=== PATIENT | female | born 1945 | race Caucasian/White ===

== ENCOUNTER 2016-12-30 14:10 | Inpatient (IN) | payer MEDICARE, OTHER ==
[~2016-12-30] VITALS: Ht 157.5 cm; Wt 78.9 kg
--- NOTE | 2016-12-30 14:30 | NUR ---
PT CAME IN FOR B LEG SWELLING AND PAIN X 2 WEEKS. REPORTS INCREASING PAIN AND UNABLE TO STRETCH IT OUT WELL LIKE BEFORE. NOTED ANXIOUS. AAOX3. REPORTS PAIN BUT REPORTS ALLERGIC TO MOST PAIN MEDS. SEEN BY MD FOR EVAL. DENIES FEVER. VSS. SAFETY AND COMFORT MEASURES PROVIDED. WILL MONITOR.
[2016-12-30] MEDS ORDERED: MORPHINE SULFATE INJ 4 MG/ML DISP.SYRIN ONE (14:47)
[2016-12-30] MEDS ORDERED: ONDANSETRON HCL/PF 4 MG/2 ML VIAL ONE (14:48)
--- NOTE | 2016-12-30 14:49 | NUR ---
EKG IN PROGRESS
--- NOTE | 2016-12-30 14:49 | NUR ---
JOB ORDER CLERK AT BEDSIDE
[2016-12-30 14:55] LABS: BASOPHILS # (AUTO) 0.1 /CMM (0.0-0.2); BASOPHILS % (AUTO) 0.6 % (0.0-2.0); EOSINOPHILS # (AUTO) 0.1 /CMM (0.0-0.7); HEMATOCRIT 43 % (33-45); HEMOGLOBIN 14.4 g/dL (11.5-14.8); LYMPHOCYTES # (AUTO) 2.3 /CMM (0.8-4.8); LYMPHOCYTES % (AUTO) 18.3 % (20.0-44.0); MEAN CORPUSCULAR HEMOGLOBIN 31 PG (26.0-33.0); MEAN CORPUSCULAR HGB CONC 33 g/dl (31.0-36.0); MEAN CORPUSCULAR VOLUME 91 fL (82-100); MONOCYTES # (AUTO) 0.9 /CMM (0.1-1.30); MONOCYTES % (AUTO) 7.2 % (2.0-12.0); NEUTROPHILS # (AUTO) 9.3 /CMM (1.8-8.9); NEUTROPHILS % (AUTO) 72.9 % (43.0-81.0); PLATELET COUNT (AUTO) 251 /CMM (150-450); RED BLOOD CELL COUNT(AUTO) 4.71 MIL/uL (4.0-5.2); WHITE BLOOD COUNT (AUTO) 12.7 K/uL (4.3-11.0)
--- NOTE | 2016-12-30 14:57 | NUR ---
PT REFUSED MORPHINE FOR ALLERGY REASONS.
[2016-12-30] MEDS ORDERED: MORPHINE SULFATE INJ 2 MG/ML DISP.SYRIN IV ONE (15:00)
[2016-12-30] MEDS ORDERED: ONDANSETRON HCL/PF - ER 4 MG/2 ML VIAL IV ONE (15:00)
[2016-12-30 15:05] LABS: CALCIUM, SERUM 10.2 mg/dL (8.5-10.1); CARBON DIOXIDE 28 mmol/L (21-32); CHLORIDE 105 mmol/L (98-107); CREATININE 0.9 mg/dL (0.6-1.3); GLUCOSE 111 mg/dL (74-106); POTASSIUM 4.1 mmol/L (3.5-5.1); SODIUM SERUM 140 mmol/L (136-145); UREA NITROGEN, BLOOD 11 mg/dL (7-18)
[2016-12-30 15:08] LABS: INR 0.99 (0.87-1.13); PROTHROMBIN TIME 10.3 SECS (9.5-12.7)
[2016-12-30 15:14] LABS: TROPONIN I < 0.017 ng/mL (0.00-0.056)
[2016-12-30 15:19] LABS: ALBUMIN 3.5 g/dL (3.4-5.0); BILIRUBIN,TOTAL 0.3 mg/dL (0.2-1.0); TOTAL PROTEIN, SERUM 6.9 g/dL (6.4-8.2)
[2016-12-30] MEDS ORDERED: IOHEXOL-350 100 ML VIAL IV ONE (15:25)
[2016-12-30] MEDS ORDERED: IV NS 0.9% 0 ML IV ONE (15:25)
--- NOTE | 2016-12-30 16:18 | NUR ---
EPIC PAGED, CERTIFIED MIDWIFE
--- NOTE | 2016-12-30 16:19 | NUR ---
CALLED NURSING SUP. FOR MS BED
[2016-12-30] MEDS ORDERED: IPRATROPIUM NEB FS 0.5 MG/2.5 ML AMPUL.NEB NEB ONE (16:30)
[2016-12-30] MEDS ORDERED: ALBUTEROL FS 2.5 MG/0.5 ML VIAL.NEB NEB ONE (16:30)
--- NOTE | 2016-12-30 16:35 | NUR ---
REPORT GIVEN TO AUGUSTINE GO FOR MS ROOM 203
[2016-12-30] MEDS ORDERED: MECL12.582 PO (16:44)
[2016-12-30] MEDS ORDERED: QUIN10TA28 PO (16:44)
[2016-12-30] MEDS ORDERED: LEVO100T9 PO (16:44)
[2016-12-30] MEDS ORDERED: LEVO75TA7 PO (16:44)
[2016-12-30] MEDS ORDERED: IV NS 0.9% 1,000 ML IV PRN (17:13)
[2016-12-30 17:30] VITALS: BP 176/77
[2016-12-30] MEDS ORDERED: ZOLPIDEM TARTRATE 5 MG TABLET PO PRN (17:30)
[2016-12-30] MEDS ORDERED: FEE PK DOSING 1 MIN EA MC ONE (17:30)
[2016-12-30] MEDS ORDERED: ONDANSETRON HCL/PF 4 MG/2 ML VIAL IVP PRN (17:30)
[2016-12-30] MEDS ORDERED: HYDROCODONE/APAP 5/325MG 1 EACH TABLET PO PRN (17:30)
[2016-12-30] MEDS ORDERED: MAGNESIUM HYDROXIDE 30 ML UDC PO PRN (17:30)
[2016-12-30] MEDS: ENOXAPARIN SODIUM 40 MG/0.4 ML DISP.SYRIN SQ SCH (17:30)
[2016-12-30] MEDS ORDERED: LORAZEPAM INJ 2 MG/ML VIAL IV PRN (17:30)
[2016-12-30] MEDS ORDERED: MORPHINE SULFATE INJ 2 MG/ML DISP.SYRIN IV PRN (17:30)
[2016-12-30] MEDS ORDERED: ACETAMINOPHEN 325 MG TABLET PO PRN (17:30)
[2016-12-30] MEDS ORDERED: MAG HYDROX/AL HYDROX/SIMETH 30 ML UDC PO PRN (17:30)
[2016-12-30] MEDS ORDERED: Z GUARD REMEDY 2 OZ OINT TP PRN (17:30)
--- NOTE | 2016-12-30 17:30 | NUR ---
ADMITTED PT FROM ER WITH DX OF CELLULITIS.PT IS ALERT AND ORIENTED X4.VERBALLY RESPONSIVE.AMBULATES AD DEN.WITH BLE REDNESS AND SWELLING.RESPIRATIONS NON LABORED IN ROOM AIR.DENIES ANY PAIN OR DISTRESS.WITH BRP.CALL LIGHT PLACED WITHIN REACH.
[2016-12-30] MEDS ORDERED: IV SET PRIMARY PUMP SET 1 EA INFUS.SET MC ONE ×2 (17:51→18:17)
[2016-12-30] MEDS: VANCOMYCIN 1 GM in IV D5W 250ml IV SCH (18:21)
[2016-12-30] MEDS ORDERED: SECONDARY IV SET 1 EA INFUS.SET MC ONE (18:23)
[2016-12-30] MEDS: hydrALAZINE HCL 25 MG TABLET PO PRN (18:24)
--- NOTE | 2016-12-30 19:00 | NUR ---
PT IS STILL EATING DINNER AND UNABLE TO DO BODY CHECK.PT WENT TO THE TOILET.ENDORSED TO NIGHT NURSE.CALL LIGHT PLACED WITHIN REACH.
--- NOTE | 2016-12-30 19:05 | NUR ---
RN NOTES RECEIVED PT AWAKE, HOB ELEVATED, NO SOB, NOT IN DISTRESS, ON ROOM AIR WITH GOOD SATURATION. PT ALERT AND ORIENTED X3, DENIES ANY PAIN AND DISCOMFORT AT THIS TIME. WHEEZING NOTED UPON AUSCULTATION. WITH IV ACCESS ON LEFT AC PATENT AND INTACT WITH ONGOING VANCOMYCIN INFUSING WELL. NOTES WITH REDNESS AND SWELLING ON BOTHE LOWER LEG AND FOOT, KEPT ELEVATED AND HEELS OFFLOADED. KEPT BED IN LOWEST POSITION, LOCKED, SIDE RAILS X 2 UP, WITH CALL LIGHT WITHIN REACH. KEPT COMFORTABLE AND ATTENDED. WILL CONTINUE TO MONITOR PT.
[2016-12-30 20:00] VITALS: BP 160/69
[2016-12-30] MEDS: ALBUTEROL FS 2.5 MG/3 ML VIAL.NEB NEB SCH ×2 (20:19→23:30)
[2016-12-30] MEDS ORDERED: VANCOMYCIN 1.25 GM in IV D5W 500 ML IV SCH (21:00)
--- NOTE | 2016-12-30 21:45 | NUR ---
RN NOTES PT REFUSED IV FLUID, PER PT SHE DOESN'T NEED IT, SHE EATS WELL. RISK AND BENEFITS EXPLAINED, PT INSIST NOT TO HAVE IVF. WIOLL CONTINUE TO MONITOR PT.
[2016-12-30 22:00] VITALS: BP 160/69
--- NOTE | 2016-12-30 23:45 | NUR ---
RN NOTES PER SUSHIL RT PT REFUSED SCHEDULED BREATHING TREATMENT. PT WANTS TO HAVE IT IN THE MORNING. O2SAT 96% AT ROOM AIR. DENIES SOB AND ANY DISCOMFORT. WILL MONITOR PT.
[2016-12-31] MEDS: ALBUTEROL FS 2.5 MG/3 ML VIAL.NEB NEB SCH ×6 (03:30→23:29)
[2016-12-31] MEDS: VANCOMYCIN 1 GM in IV D5W 250ml IV SCH ×2 (06:00→17:30)
--- NOTE | 2016-12-31 06:17 | NUR ---
RN NOTES PT REFUSED VANCOMYCIN IV, PER PT SHE HAS A LOT OF ALLERGY IN MEDICATION. YESTERDAY SHE SAID SHE FELT WARM AFTER THE FIRST DOSE WAS GIVEN, BUT WAS NOT MENTIONED TO THE NURSE. RISK AND BENEFITS EXPLAINED, PT STRONGLY REFUSED. WILL CONTINUE TO MONITOR PT.
--- NOTE | 2016-12-31 07:21 | NUR ---
RN NOTES PT AWAKE, SITTING IN HER BED, NO SOB, NOT IN DISTRESS, ON ROOM AIR WITH GOOD SATURATION. VITAL SIGNS STABLE, AFEBRILE. NO COMPLAIN OF CHEST PAIN AND SOB. NO EPISODE OF NAUSEA AND VOMITING. PT IS NOTED NON COMPLIANT WITH TREATMENT AND MEDICATIONS. PT VERBALIZED PAIN ON HER LOWER LEGS AND DOESN'T WANT TO TAKE ANY PAIN MEDICATIONS. REFUSED BLOOD DRAW FOR BLOOD TESTS. PT AMBULATORY WITH STEADY GAIT. KEPT COMFORTABLE AND ATTENDED. WILL ENDORSE TO MORNING RN FOR CONTINUITY OF CARE.
[2016-12-31] MEDS: PANTOPRAZOLE 40 MG TABLET.DR PO SCH (07:30)
--- NOTE | 2016-12-31 07:30 | NUR ---
MS RN NOTES RECEIVED PATIENT AWAKE, AOX3, ABLE TO MAKE NEEDS KNOWN. BREATHING EVEN AND NON LABORED, DENIES ANY PAIN AT THIS TIME. NO S/S OF ANY RESPIRATORY DISTRESS OR DISCOMFORT NOTED. CALL LIGHT WITHIN REACH, BED IN LOW POSITION FOR SAFETY MEASURES. WILL CONTINUE TO MONITOR.
[2016-12-31 08:00] VITALS: BP 157/84
--- NOTE | 2016-12-31 08:00 | NUR ---
MS RN NOTES PER PT SHE'S ALLERGIC TO EGGS, DIETARY/KITCHEN MADE AWARE AND ALLERGY UPDATED. .
[2016-12-31] MEDS: NICOTINE PATCH (21MG) 21 MG PATCH.TD24 TD SCH (08:29)
[2016-12-31] MEDS: AMLODIPINE BESYLATE 5 MG TABLET PO SCH (08:29)
--- NOTE | 2016-12-31 08:30 | NUR ---
MS RN NOTES SEEN AND EXAMINED BY DR. RENDON WITH NEW ORDERS MADE AND CARRIED OUT.
--- NOTE | 2016-12-31 09:00 | NUR ---
MS RN NOTES PT REFUSED HER PROTONIX SHE STATED THAT SHE DON'T NEED IT. RISK AND BENEFITS DISCUSSED TO THE PATIENT THAT IT IS FOR HER STOMACH UPSET, BUT SHE REFUSED. WILL CONTINUE TO MONITOR.
[2016-12-31 09:34] LABS: BASOPHILS % (AUTO) 0.2 % (0.0-2.0); EOSINOPHILS # (AUTO) 0.2 /CMM (0.0-0.7); EOSINOPHILS % (AUTO) 1.4 % (0.0-6.0); HEMATOCRIT 44 % (33-45); HEMOGLOBIN 14.5 g/dL (11.5-14.8); LYMPHOCYTES # (AUTO) 1.6 /CMM (0.8-4.8); LYMPHOCYTES % (AUTO) 14.5 % (20.0-44.0); MEAN CORPUSCULAR HEMOGLOBIN 30 PG (26.0-33.0); MEAN CORPUSCULAR HGB CONC 33 g/dl (31.0-36.0); MEAN CORPUSCULAR VOLUME 92 fL (82-100); MONOCYTES # (AUTO) 0.5 /CMM (0.1-1.30); MONOCYTES % (AUTO) 4.5 % (2.0-12.0); NEUTROPHILS # (AUTO) 8.9 /CMM (1.8-8.9); NEUTROPHILS % (AUTO) 79.4 % (43.0-81.0); PLATELET COUNT (AUTO) 250 /CMM (150-450); RDW COEFFICIENT OF VARIATION 16.9 (11.5-15.0); WHITE BLOOD COUNT (AUTO) 11.2 K/uL (4.3-11.0)
[2016-12-31 09:49] LABS: CALCIUM, SERUM 9.8 mg/dL (8.5-10.1); CREATININE 0.8 mg/dL (0.6-1.3); POTASSIUM 3.7 mmol/L (3.5-5.1)
[2016-12-31] MEDS ORDERED: LEVOTHYROXINE SODIUM 75 MCG TABLET PO SCH (15:00)
[2016-12-31] MEDS ORDERED: MENTHOL/CETYLPYRD (CEPACOL) 1 LOZ LOZENGE PO PRN (15:00)
[2016-12-31] MEDS ORDERED: MECLIZINE HCL 12.5 MG TABLET PO PRN (15:00)
--- NOTE | 2016-12-31 15:55 | NUR ---
MS RN NOTES [employer] CUSTOMER PRICING MANAGER CAME BUT PT WENT DOWN TO GET SOMETHING IN HER CAR. PER [employer]ita CUSTOMER PRICING MANAGER ECHOCARDIOGRAM WILL BE DONE TOMORROW MORNING.
[2016-12-31 16:00] VITALS: BP_SYST 125; BP_SYST 145; BP_DIAS 75; BP_DIAS 89
--- NOTE | 2016-12-31 17:30 | NUR ---
MS RN NOTES PT REFUSED HER VANCOMYCIN IV, SHE STATED 'I'M DOING FINE AND I DON'T NEED THAT". EXPLAINED TO THE PT THAT THIS IS FOR HER BLE CELLULITIS AND TO TREAT THE INFECTION. SHE STRONGLY REFUSED. PT IS AOX3 AND ABLE TO MAKE NEEDS KNOWN. DR. RENDON MADE AWARE. WILL CONTIUE TO OFFER. AND MONITOR AT THIS TIME.
--- NOTE | 2016-12-31 18:12 | NUR ---
MS RN NOTES ALL NEEDS ANTICIPATED AND ATTENDED. ENDORSED TO INCOMING SHIFT FOR CONTINUITY OF CARE.
--- NOTE | 2016-12-31 18:34 | NUR ---
MS RN NOTES PT IS REFUSING HER CARDIAC DIET AND REQUESTING TO CHANGE TO REGULAR DIET. PT STARTED YELLING AND SCREAMING. DEMANDING TO CHANGE HER DIET. MADE AWARE.
--- NOTE | 2016-12-31 19:00 | NUR ---
MS RN NOTES RECEIVED PATIENT IN BED AWAKE, ALERT AND ORIENTED X 3. IN STABLE CONDITION NO S/S OF DISTRESS NOTED. VERBALLY RESPONSIVE WITH NO C/O PAIN OR DISCOMFORTS VOICED. IV SITE INTACT W/ NO S/S OF INFILTRATION NOTED. CALL LIGHT WITHIN REACH. BED AT LOW POSITION AND LOCKED FOR SAFETY. WILL CONTINUE TO MONITOR ACCORDINGLY.
[2016-12-31 20:00] VITALS: BP 173/76
[2016-12-31] MEDS: ENOXAPARIN SODIUM 40 MG/0.4 ML DISP.SYRIN SQ SCH (21:00)
--- NOTE | 2016-12-31 21:00 | NUR ---
LOVENOX 40MG SQ WAS REFUSED BY THE PT DESPITE RISKS AND BENEFITS EXPLAINED 3 X STILL REFUSED HEALTH EDUCATION PROVIDED. MADE AWARE
[2017-01-01] MEDS: ALBUTEROL FS 2.5 MG/3 ML VIAL.NEB NEB SCH ×6 (02:34→23:16)
[2017-01-01] MEDS: VANCOMYCIN 1 GM in IV D5W 250ml IV SCH ×2 (06:20→17:32)
--- NOTE | 2017-01-01 06:43 | NUR ---
MS RN CLOSING NOTES PATIENT COMFORTABLY IN BED ASLEEP AND EASILY AWAKEN, HEAD OF BED ELEVATED FOR BETTER LUNG EXPANSION AND BETTER CIRCULATION, TOLERATING ROOM AIR, SP02 99% R.A ALERT AND VERBALLY X 4 NO S/S OF DISTRESS, IV SITE INTACT W/ NO S/S OF INFILTRATION NOTED. RESPIRATIONS EVEN UNLABORED BREATH SOUNDS. APICAL PULSE REGULAR; GOOD SKIN CARE PROVIDED. PATIENT IN STABLE CONDITION WITH NO SOB NO S/S OF DISTRESS NO NAUSEA AND VOMITING NO HEADACHE NO PAIN, NO CHEST PAIN SAFETY ENVIRONMENT PROVIDED. FREE OF CLUTTERS, SAFE HAZARD FREE ENVIRONMENT. NEEDS ATTENDED AND ANTICIPATED, NURSING CARE RENDERED, KEPT CLEAN AND DRY AND COMFORTABLE. ALL DUE MEDS WAS GIVEN. CALL LIGHT IN REACH, BED LOWERED AND LOCKED, SR X2 FOR SAFETY AND WILL ENDORSE CONTINUE PLAN OF CARE.
--- NOTE | 2017-01-01 07:20 | NUR ---
MS RN OPENING RECEIVED PATIENT A/OX4 STATES NO PAIN, DENIES SOB, DIFFICULTY BREATHING. PER RN PATIENT HAS SOME MEDICINE AND HER CIGARETTES AT BEDSIDE. PATIENT STATES SHE DOES NOT TRUST ANYONE TO TAKE THESE THINGS; EDUCATED WE WILL NOT HAVE THEM IN HER ROOM A SAFETY HAZARD. PATIENT AGREEABLE TO PUT THESE THINGS IN HER CAR SHE IS PARKED IN ER SPACES. PATIENT STATES NO NEEDS AT THIS TIME AND APPEARS STABLE. CALL LIGHT IN REACH, BED LOWERED AND LOCKED, RAILS UPX3 FOR SAFETY AND WILL ROUND Q2H OR LESS PER NEEDS.
[2017-01-01] MEDS: PANTOPRAZOLE 40 MG TABLET.DR PO SCH (07:30)
[2017-01-01] MEDS ORDERED: LEVOTHYROXINE SODIUM 75 MCG TABLET PO SCH (07:30)
[2017-01-01 08:00] VITALS: BP 157/86
[2017-01-01] MEDS: AMLODIPINE BESYLATE 5 MG TABLET PO SCH (08:03)
[2017-01-01] MEDS: NICOTINE PATCH (21MG) 21 MG PATCH.TD24 TD SCH (08:04)
[2017-01-01 08:24] LABS: CALCIUM, SERUM 10.1 mg/dL (8.5-10.1); CREATININE 0.7 mg/dL (0.6-1.3)
[2017-01-01 09:19] VITALS: BP 157/86
[2017-01-01 16:00] VITALS: BP 141/68
[2017-01-01 16:38] VITALS: BP 141/68
--- NOTE | 2017-01-01 18:27 | NUR ---
MS RN CLOSING PATIENT STABLE NO COMPLICATIONS NO CHANGES. ALL DUE MEDS GIVEN AND ALL NEEDS MET. PATIENT STATES NO NEEDS AT THIS TIME. CALL LIGHT IN REACH, BED LOWERED AND LOCKED, RAILS UPX3 FOR SAFETY BED ALARM ON. WILL ENDORSE TO [facility] FOR BO
--- NOTE | 2017-01-01 19:30 | NUR ---
MS RN INITIAL NOTE RECEIVED PT AWAKE AND ALERT, ORIENTED X3, NO COMPLAINT OF PAIN OR RESPIRATORY DISTRESS NOTED DURING PHYSICAL ASSESSMENT, PT IS CLEAN/DRY AND COMFORTABLE, SAFETY MEASURES WILL BE MAINTAINED AT ALL TIMES, NEEDS WILL BE MET PROMPTLY.
[2017-01-01 20:00] VITALS: BP 139/75
[2017-01-01] MEDS: ENOXAPARIN SODIUM 40 MG/0.4 ML DISP.SYRIN SQ SCH (21:00)
[2017-01-02] MEDS: ALBUTEROL FS 2.5 MG/3 ML VIAL.NEB NEB SCH ×6 (03:06→22:53)
[2017-01-02] MEDS: VANCOMYCIN 1 GM in IV D5W 250ml IV SCH (05:45)
[2017-01-02] MEDS: PANTOPRAZOLE 40 MG TABLET.DR PO SCH (06:35)
[2017-01-02 06:56] LABS: CREATININE 0.7 mg/dL (0.6-1.3); POTASSIUM 4.1 mmol/L (3.5-5.1)
--- NOTE | 2017-01-02 07:07 | NUR ---
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
[2017-01-02] MEDS ORDERED: LEVOTHYROXINE SODIUM 100 MCG TABLET PO SCH (07:30)
--- NOTE | 2017-01-02 07:30 | NUR ---
MS RN OPENING RECEIVED PATIENT A/OX4 STATES ANXIETY IS BETTER, STATES HER LEGS ARE 100% BETTER AND NO PAIN. PATIENT DENIES SOB, DIFFICULTY BREATHING. STATES NO NEEDS AT THIS TIME. PILLOWS UNDER BILAT LEGS FOR ELEVATION. CALL LIGHT IN REACH, BED LOWERED AND LOCKED, RAILS UPX3 FOR SAFETY AND WILL ROUND Q2H OR LESS PER NEEDS.
[2017-01-02 08:00] VITALS: BP 155/78
[2017-01-02] MEDS: NICOTINE PATCH (21MG) 21 MG PATCH.TD24 TD SCH (08:09)
[2017-01-02] MEDS: AMLODIPINE BESYLATE 5 MG TABLET PO SCH (08:09)
--- NOTE | 2017-01-02 10:44 | NUR ---
MS RN NOTES MESSAGE TO MARY NUNES TO NOTIFY PATIENT CAR IN ER PARKING LOT AND UNABLE TO HAVE ANYONE TAKE CAR TO NEXT LOCATION. PATIENT REFUSING AMBULANCE TRANSPORT WELL STATING SHE WILL NEVER GET IN ANOTHER ONE AGAIN. ELMO HERNANDEZ WILL COME SPEAK WITH PATIENT
--- NOTE | 2017-01-02 11:26 | NUR ---
Social service consult requested by Med/Surg CEM Rehman for homelessness. Per H&P report by Dr. Hawley, patient is a 71-year old female with a PMHx of HTN, hyperlipidemia, COPD, GERD, and cancer. Patient is currently homeless and has been living in her car. Patient was admitted to [facility] for LE edema and COPD exacerbation. SW met with patient at bedside. Patient was alert and oriented x4. She presented in a dysphoric mood, her affect was congruent, and her appearance was disheveled. Her thought process was coherent. She denied any suicidal or homicidal ideation. She denied any history of mental health. She reported smoking a pack of cigarettes per day. She denied any other history of substance abuse. Patient reports that she has been homeless for the past 3 months. She has been living in her car. She lost her home in [place] and has been homeless since. The current episode of homeless is the patient's first. This have been a very difficult time for her. Patient confirmed that she agreed to SNF placement at [facility] [[address], [place] [place] [address]]. Patient also requested resources: Craigslist application, housing resources, food baker, and [employer] information. SW will provide patient with all the requested resources. SW will update case management.
--- NOTE | 2017-01-02 13:35 | NUR ---
WOUND CARE CONSULT: PT REFUSED FULL SKIN ASSESSMENT. PT STATES IS AMBULATORY AND CONTINENT. PT USING MOISURIZING LOTION FOR DRY SKIN ON EXTREMITIES. WILL SEE PRN.
[2017-01-02] MEDS: hydrALAZINE HCL 25 MG TABLET PO PRN (15:50)
[2017-01-02 16:00] VITALS: BP_SYST 155; BP_SYST 171; BP_DIAS 78
[2017-01-02 17:00] VITALS: BP 158/70
--- NOTE | 2017-01-02 18:48 | NUR ---
MS RN CLOSING NOTE PT REMAINED STABLE DURING PROCESS DEVELOPMENT CHEMIST, SLEPT INTERMITTENTLY WITH NO COMPLAINT OF PAIN OR RESPIRATORY DISTRESS NOTED, WILL ENDORSE TO INCOMING NURSE FOR BO.
--- NOTE | 2017-01-02 19:21 | NUR ---
MS RN INITIAL NOTE RECEIVED PT AWAKE AND ALERT, ORIENTED X4, NO COMPLAINT OF PAIN OR RESPIRATORY DISTRESS NOTED, PT IS STABLE AND COMFORTABLE, ALL NEEDS WILL BE ATTENDED TO PROMPTLY, SAFETY MEASURES WILL BE ENFORCED AT ALL TIMES, WILL MONITOR CONTINUE TO MONITOR CLOSELY.
[2017-01-02 20:02] VITALS: BP 130/76
[2017-01-02 20:05] VITALS: BP 130/76
[2017-01-02] MEDS: ENOXAPARIN SODIUM 40 MG/0.4 ML DISP.SYRIN SQ SCH (21:00)
--- NOTE | 2017-01-02 21:21 | NUR ---
PT REFUSED THE ADMINISTRATION OF LOVENOX, EXPLAINED RISKS OF NOT RECEIVING MEDICATION AND ALSO THE BENEFITS OF RECEIVING SUCH MEDICATION X3, PT CONTINUES TO REFUSE, WILL CONTINUE TO MONITOR CLOSELY.
[2017-01-03] MEDS: ALBUTEROL FS 2.5 MG/3 ML VIAL.NEB NEB SCH (03:30)
--- NOTE | 2017-01-03 04:33 | NUR ---
PT WOKE UP ASKING TO GO FOR A SMOKE, EXPLAINED THAT THIS IS AN INADEQUATE TIME TO SMOKE AND SHE WILL BE TAKEN LATER IN THE DAY PLANNED IN THE SMOKING SCHEDULE, PT IS PACING BACK AND FORTH SAYING THAT SHE IS WORRIED ABOUT LOSING HER CAR ONCE SHE IS DISCHARGED, EXPLAINED THAT CM IS WORKING ON FINDING A WAY TO TRANSPORT HER AND HER CAR TO THE FACILITY THAT HAS ACCEPTED HER FOR BO, SHE STATES "I SHOULD JUST LEAVE THE HOSPITAL BECAUSE THEY ARE GOING TO MAKE ME LOSE MY CAR" EXPLAINED ONCE AGAIN THAT CM IS WORKING ON A WAY TO ACCOMMODATE HER, PT AGREED TO REMAIN IN THE HOSPITAL AND WILL WAIT FOR FURTHER INFORMATION ON PLAN FOR TRANSPORT UPON D/C, WILL ENDORSE TO AM NURSE FOR BO.
--- NOTE | 2017-01-03 05:25 | NUR ---
PT STARTED GETTING AGITATED ONCE AGAIN ASKING TO GO FOR A SMOKE, EXPLAINED TO PATIENT THAT TO ENSURE HER SAFETY IT IS CONTRAINDICATED TO TAKE HER FOR A SMOKE AT THIS TIME, REASSURED TO PT THAT SHE WILL BE TAKEN TO SMOKE LATER IN THE MORNING AT THE TIME STIPULATED BY SMOKING SCHEDULE, PT CONTINUES TO STATE THAT SHE WANT TO GO BECAUSE SHE WILL LOSE HER CAR OTHERWISE, EXPLAINED AGAIN THAT CM IS WORKING ON A WAY TO TRANSPORT HER WITH HER CAR TO THE FACILITY WHERE SHE WAS ACCEPTED, SHE CONTINUES TO SAY THAT SHE DOESN'T WANT TO BE A PRISONER IN THIS NEW FACILITY WHERE SHE IS GOING TO BE TRANSFERRED, EXPLAINED TO PT THAT THIS FACILITY IS TO ENSURE HER RECOVERY AND WELL BEING, SHE CONTINUES TO REFUSE AND INSISTS IN LEAVING THE HOSPITAL AGAINS MEDICAL ADVICE. DOCTOR REYNALDO HUBER PAGED TO BE NOTIFIED OF PT LEAVING BUT PT LEFT BEFORE DOCTOR WAS ABLE TO CALL BACK, NURSING LIFE COACH MADE AWARE.
== END 2017-01-03 05:25 | disposition left against medical advice (07) | DRG 191 ==
LOC: ER 14:19 → MEDSG2 16:41
PROVIDERS: ADMIT Internal Medicine; ATTEND Internal Medicine
DX: J44.1 Chronic obstructive pulmonary disease with (acute) exacerbation (principal); L03.116 Cellulitis of left lower limb; K21.9 Gastro-esophageal reflux disease without esophagitis; E78.5 Hyperlipidemia, unspecified; E03.9 Hypothyroidism, unspecified; E66.9 Obesity, unspecified; E83.52 Hypercalcemia; F17.210 Nicotine dependence, cigarettes, uncomplicated; F41.9 Anxiety disorder, unspecified; I10 Essential (primary) hypertension; Z59.0 Homelessness; Z82.49 Family history of ischemic heart disease and other diseases of the circulatory system; Z85.820 Personal history of malignant melanoma of skin; R60.0 Localized edema; Z88.0 Allergy status to penicillin; Z88.2 Allergy status to sulfonamides
CPT/HCPCS: 36415; 71010-TC; 80048-TC; 80061-TC; 80076-TC; 80202-TC; 83735-TC; 83880; 84100-TC; 84484-TC; 85025-TC; 85730-TC; 87081-TC; 93307-TC; 93970-TC; 97001-TC; A4606; J1650; J2270; J2405; J3370; J7030; J7050; J7060; Q9967; Z7610